=== PATIENT | male | born 1980 | race Caucasian/White ===

== ENCOUNTER 2020-04-18 16:51 | Emergency (ER) | payer BC, OTHER ==
[~2020-04-18] VITALS: Ht 165.1 cm; Wt 82.0 kg
[2020-04-18] MEDS ORDERED: ASPI81CH33 PO (17:01)
[2020-04-18 17:40] LABS: BASO # 0.1 10^3/uL (0.0-0.2); BASO % 0.6 % (0.0-1.0); EOS # 0.1 10^3/uL (0.0-0.5); EOS % 1.7 % (0.0-3.0); HEMATOCRIT 43.9 % (42.0-52.0); HEMOGLOBIN 15.6 g/dl (13.5-17.5); LYMPH # 2.6 10^3/uL (1.5-5.0); MEAN CORPUSCULAR HEMOGLOBIN 30.6 pg (27.0-33.0); MEAN CORPUSCULAR HGB CONC 35.5 g/dl (32.0-36.5); MEAN CORPUSCULAR VOLUME 86.2 fl (80.0-96.0); MONO # 0.7 10^3/uL (0.0-0.8); MONO % 8.1 % (0.0-5.0); NEUTROPHILS # 4.9 10^3/uL (1.5-8.5); NEUTROPHILS % 58.2 % (36.0-66.0); PLATELET COUNT, AUTOMATED 280 10^3/uL (150-450); RED BLOOD COUNT 5.09 10^6/uL (4.30-6.10); WHITE BLOOD COUNT 8.4 10^3/uL (4.0-10.0)
[2020-04-18 18:29] LABS: ALBUMIN 4.4 GM/DL (3.2-5.2); ALT/SGPT 51 U/L (12-78); BILIRUBIN,DIRECT 0.1 MG/DL (0.0-0.2); BILIRUBIN,TOTAL 0.4 MG/DL (0.2-1.0); BLOOD UREA NITROGEN 13 MG/DL (7-18); CALCIUM LEVEL 9.1 MG/DL (8.5-10.1); CARBON DIOXIDE LEVEL 27 MEQ/L (21-32); CHLORIDE LEVEL 106 MEQ/L (98-107); CREATININE FOR GFR 1.23 MG/DL (0.70-1.30); GLOMERULAR FILTRATION RATE > 60.0 (>60); GLUCOSE, FASTING 98 MG/DL (70-100); LIPASE 180 U/L (73-393); NT-PRO BNP 16 PG/ML (<125); SODIUM LEVEL 137 MEQ/L (136-145); TOTAL PROTEIN 8.1 GM/DL (6.4-8.2)
[2020-04-18 18:36] VITALS: BP 159/106
--- NOTE | 2020-04-18 20:46 | REP ---
Single view chest: 04/18/2020. Indication: Chest pain. Comparison: None. Findings: The lungs are clear. There is no pleural effusion or pneumothorax. The cardiac silhouette is normal in size. Impression: Clear lungs. Electronically Signed by Ryan Jett DO 04/18/2020 08:38 P
--- NOTE | 2020-04-19 00:38 | ECGEPIP ---
[facility] - ED Test Date: 2020-04-18 Pat Name: PASHA SHARPE Department: Room: - Gender: Male Online [employer]ist: : [id number] Requested By: Alyson Ramírez Order Number: [id number] Reading MD: Aurelio Holden Measurements Intervals [place] Rate: 87 P: 54 WA: 166 QRS: 27 QRSD: 100 T: 41 QT: 331 QTc: 400 Interpretive Statements SINUS RHYTHM Comparison tracing not on file Electronically Signed on 04-19-2020 0:37:54 EDT by Aurelio Holden
== END 2020-04-18 18:53 | disposition home or self-care (01) ==
LOC: M ED 16:51
DX: R07.9 Chest pain, unspecified (principal); R03.0 Elevated blood-pressure reading, without diagnosis of hypertension